=== PATIENT | female | born 1980 | race Caucasian/White ===

== ENCOUNTER → 2019-05-21 15:46 | Outpatient (BNVA) | payer BC, SELFPAY | PROVIDERS: Family Provider Family Medicine; Visit Provider Nurse Practitioner Psychiatric/Mental Health | DX: F33.2 Major depressive disorder, recurrent severe without psychotic features (principal); F41.1 Generalized anxiety disorder | CPT/HCPCS: 99214 ==

== ENCOUNTER → 2019-07-09 08:19 | Outpatient (BNVA) | payer BC, SELFPAY | PROVIDERS: Family Provider Family Medicine; Visit Provider Nurse Practitioner Psychiatric/Mental Health | DX: F33.2 Major depressive disorder, recurrent severe without psychotic features (principal); F41.1 Generalized anxiety disorder | CPT/HCPCS: 99213 ==

== ENCOUNTER → 2019-08-31 08:09 | Outpatient (BNVA) | payer BC, SELFPAY | PROVIDERS: Family Provider Family Medicine; Visit Provider Nurse Practitioner Psychiatric/Mental Health | DX: F33.2 Major depressive disorder, recurrent severe without psychotic features (principal); F41.1 Generalized anxiety disorder; F43.12 Post-traumatic stress disorder, chronic | CPT/HCPCS: 99213 ==

== ENCOUNTER → 2019-10-25 07:42 | Outpatient (BNVA) | payer BC, SELFPAY | PROVIDERS: Family Provider Family Medicine; Visit Provider Nurse Practitioner Psychiatric/Mental Health | DX: F33.2 Major depressive disorder, recurrent severe without psychotic features (principal); F41.1 Generalized anxiety disorder | CPT/HCPCS: 99214 ==

== ENCOUNTER → 2019-11-22 09:25 | Outpatient (BNVA) | payer BC, SELFPAY | PROVIDERS: Family Provider Family Medicine; Visit Provider Nurse Practitioner Psychiatric/Mental Health | DX: F33.2 Major depressive disorder, recurrent severe without psychotic features (principal); F41.1 Generalized anxiety disorder | CPT/HCPCS: 99214 ==

== ENCOUNTER → 2019-12-27 09:17 | Outpatient (BNVA) | payer BC, SELFPAY | PROVIDERS: Family Provider Family Medicine; Visit Provider Nurse Practitioner Psychiatric/Mental Health | DX: F33.2 Major depressive disorder, recurrent severe without psychotic features (principal); F41.1 Generalized anxiety disorder | CPT/HCPCS: 99213 ==

== ENCOUNTER → 2020-03-20 08:53 | Outpatient (BNVA) | payer BC, SELFPAY | PROVIDERS: Family Provider Family Medicine; Visit Provider Nurse Practitioner Psychiatric/Mental Health | DX: F33.2 Major depressive disorder, recurrent severe without psychotic features (principal); F41.1 Generalized anxiety disorder | CPT/HCPCS: 99213 ==

== ENCOUNTER 2020-04-19 12:33 | Outpatient (CLI) | payer BC, SELFPAY ==
--- NOTE | 2020-04-19 13:01 | MM_ITS ---
WS: [id number] SCREENING DIGITAL MAMMOGRAM WITH CAD HISTORY: SCREENING COMPARISON: None available. Bilateral CC and MLO views submitted. Computer aided detection analyzed. Breast composition: There are scattered areas of fibroglandular density. No suspicious masses, microc alcifications or architectural distortion. MM/[id number] IMPRESSION: BI-RADS: 1-Negative FOLLOW UP: 1 Year Follow-up
== END 2020-04-19 12:34 | disposition home or self-care (01) ==
PROVIDERS: Family Provider Family Medicine; Visit Provider Family Medicine
DX: Z12.31 Encounter for screening mammogram for malignant neoplasm of breast (principal)
CPT/HCPCS: 77067

== ENCOUNTER → 2020-06-12 08:24 | Outpatient (BNVA) | payer BC, SELFPAY | PROVIDERS: Family Provider Family Medicine; Visit Provider Nurse Practitioner Psychiatric/Mental Health | DX: F33.2 Major depressive disorder, recurrent severe without psychotic features (principal); F41.1 Generalized anxiety disorder | CPT/HCPCS: 99213 ==

== ENCOUNTER → 2022-12-10 14:46 | Outpatient (BNVA) | payer BC, SELFPAY | PROVIDERS: Family Provider Family Medicine; Visit Provider Nurse Practitioner Psychiatric/Mental Health | DX: Z79.899 Other long term (current) drug therapy (principal) | CPT/HCPCS: 80061; 83036 ==

== ENCOUNTER 2023-06-02 13:00 | Outpatient (CLI) | payer BC, SELFPAY ==
--- NOTE | 2023-06-02 13:03 | MM_ITS ---
WS: [id number] BILATERAL 3D TOMOSYNTHESIS DIGITAL SCREENING MAMMOGRAPHY WITH CAD CLINICAL INFORMATION: SCREENING HISTORY: Screening mammogram. No current complaints. COMPARISON: 2020 TECHNIQUE: Bilateral CC and MLO views. FINDINGS: Scattered fibroglandular densities bilaterally. No suspicious focal mass, asymmetry, calcifications, or architectural distortion. No evidence of malignancy. A few incidental punctate and lucent centered calcifications. IMPRESSION: MM/[place] [id number] BI-RADS: 2-Benign FOLLOW UP: 1 Year Follow-up Recommend return to annual screening mammography.
== END 2023-06-02 13:01 | disposition home or self-care (01) ==
LOC: RAD 13:00
PROVIDERS: Family Provider Family Medicine; Visit Provider Family Medicine
DX: Z12.31 Encounter for screening mammogram for malignant neoplasm of breast (principal); R92.323 Mammographic fibroglandular density, bilateral breasts
CPT/HCPCS: 77063; 77067

== ENCOUNTER → 2023-11-19 11:18 | Outpatient (BNVA) | payer BC, SELFPAY | PROVIDERS: Family Provider Family Medicine; Visit Provider Nurse Practitioner Psychiatric/Mental Health | DX: Z79.899 Other long term (current) drug therapy (principal) | CPT/HCPCS: 80061; 83036 ==

== ENCOUNTER 2024-02-12 09:00 | Oncology outpatient (recurring) (ONCR) | payer BC, SELFPAY ==
[2024-02-10 09:20] VITALS: BP 130/76; PULSE 87; RESP 17; TEMP 36.6; O2SAT 96
[2024-02-10] MEDS: iron sucrose 200 MG in sodium chloride 0.9% (100 ml) 100 ML 220 MG IV (09:43)
[2024-02-10 10:24] VITALS: BP 132/74; PULSE 68; RESP 16; TEMP 36.8; O2SAT 96
[2024-02-12 09:18] VITALS: BP 139/83; PULSE 79; RESP 16; TEMP 36.7; O2SAT 97
[2024-02-12] MEDS: iron sucrose 200 MG in sodium chloride 0.9% (100 ml) 100 ML 220 MG IV (09:47)
[2024-02-12 10:30] VITALS: BP 118/65; PULSE 80; RESP 16; TEMP 36.6; O2SAT 98
== END 2024-02-12 23:59 | disposition home or self-care (01) ==
PROVIDERS: PCP Family Medicine; Visit Provider Family Medicine
DX: Z53.9 Procedure and treatment not carried out, unspecified reason; Z79.899 Other long term (current) drug therapy; D50.9 Iron deficiency anemia, unspecified
CPT/HCPCS: 96365; J1756

== ENCOUNTER 2024-02-20 09:03 | Oncology outpatient (recurring) (ONCR) | payer BC, SELFPAY ==
[2024-02-16 09:00] VITALS: BP 149/82; PULSE 82; RESP 18; TEMP 35.8; O2SAT 96
[2024-02-16] MEDS: iron sucrose 200 MG in sodium chloride 0.9% (100 ml) 100 ML 220 MG IV (09:09)
[2024-02-16 09:49] VITALS: BP 137/89; PULSE 73; TEMP 35.9; O2SAT 98
[2024-02-18] MEDS: iron sucrose 200 MG in sodium chloride 0.9% (100 ml) 100 ML 220 MG IV (09:16)
[2024-02-18 09:50] VITALS: BP 140/80; PULSE 84; RESP 17; TEMP 36.1; O2SAT 99
[2024-02-20] MEDS: iron sucrose 200 MG in sodium chloride 0.9% (100 ml) 100 ML 220 MG IV (09:35)
[2024-02-20 10:19] VITALS: BP 135/85; PULSE 92; RESP 17; TEMP 36.1; O2SAT 97
== END 2024-03-13 23:59 | disposition home or self-care (01) ==
PROVIDERS: PCP Family Medicine; Visit Provider Family Medicine
DX: D50.9 Iron deficiency anemia, unspecified (principal); Z79.899 Other long term (current) drug therapy; Z53.9 Procedure and treatment not carried out, unspecified reason
CPT/HCPCS: 96365; J1756

== ENCOUNTER → 2024-12-20 08:35 | Outpatient (BNVA) | payer BC, SELFPAY | PROVIDERS: PCP Family Medicine; Visit Provider Nurse Practitioner Psychiatric/Mental Health | DX: Z79.899 Other long term (current) drug therapy (principal) | CPT/HCPCS: 80061; 83036 ==